=== PATIENT | male | born 1970 | race Caucasian/White ===

== ENCOUNTER 2019-09-10 18:34 | Emergency (ER) | payer MEDICAID ==
[2019-09-10 18:37] VITALS: Wt 150.0 kg
[2019-09-10 19:03] LABS: BASOPHILS 0.1 % (0-2); EOSINOPHILS 0.4 % (0-7); IMMATURE GRANULOCYTES 0.7 % (0-5); LYMPHOCYTES 4.4 % (15-50); MCH 29.9 pg (26.0-34.0); MCHC 33.3 g/dL (31.0-37.0); MCV 89.7 fL (80.0-100.0); MEAN PLATELET VOLUME 8.7 fL (7.4-10.4); MONOCYTES 7.6 % (2-11); NEUTROPHILS 86.8 % (40-80); PLATELET COUNT 200 10x3/uL (130-400); RBC 4.68 10x6/uL (4.20-6.10); RDW 13.5 % (11.5-14.5); WBC 16.9 10x3/uL (4.8-10.8)
[2019-09-10 19:10] LABS: CALC OSMOLALITY 279 mosm/kg (275-300); CALCIUM 8.9 mg/dL (8.5-10.1); CHLORIDE - SERUM 99 mmol/L (98-107); CREATININE - SERUM 1.4 mg/dL (0.6-1.3); GLUCOSE 211 mg/dL (74-106); POTASSIUM - SERUM 3.9 mmol/L (3.5-5.1); SODIUM 136 mmol/L (136-145); UREA NITROGEN 18 mg/dL (7-18); eGFR NON AFRICAN AMERICAN 57 mL/min (90-120)
[2019-09-10 19:13] LABS: APTT 24.4 SECONDS (22.8-39.4); INR 1.03 (0.85-1.17); PROTIME 13.5 SECONDS (11.6-15.0)
[2019-09-10 19:30] LABS: ALBUMIN 3.4 g/dL (3.4-5.0); ALKALINE PHOSPHATASE 63 U/L (30-120); ALT (SGPT) 24 U/L (10-68); BILIRUBIN - TOTAL 0.53 mg/dL (0.2-1.3); CKMB 1.1 U/L (0.0-3.6); CREATINE KINASE 118 UL (21-232); MAGNESIUM - SERUM 1.5 mg/dL (1.8-2.4); PROTEIN - SERUM 7.8 g/dL (6.4-8.2)
[2019-09-10 19:35] LABS: TROPONIN-I 0.341 ng/mL (0.000-0.060)
[2019-09-10 19:41] LABS: BILIRUBIN NEGATIVE (NEGATIVE); GLUCOSE NEGATIVE (NEGATIVE); KETONE NEGATIVE (NEGATIVE); NITRITE NEGATIVE (NEGATIVE); SPECIFIC GRAVITY 1.015 (1.005-1.020); UROBILINOGEN NORMAL (NORMAL)
[2019-09-10 21:23] VITALS: BP 115/76
== END 2019-09-10 21:23 | disposition left against medical advice (07) ==
LOC: D.ER 18:34
PROVIDERS: Emergency Medicine
DX: R79.89 Other specified abnormal findings of blood chemistry (principal); K52.9 Noninfective gastroenteritis and colitis, unspecified; E86.9 Volume depletion, unspecified; K92.2 Gastrointestinal hemorrhage, unspecified; E11.9 Type 2 diabetes mellitus without complications; I10 Essential (primary) hypertension; Z72.0 Tobacco use; Z53.29 Procedure and treatment not carried out because of patient's decision for other reasons

== ENCOUNTER 2020-12-05 15:02 | Inpatient (IN) | payer OTHER ==
[~2020-12-05] VITALS: Ht 190.5 cm; Wt 159.5 kg
[2020-12-05 16:01] LABS: BASOPHILS 0.8 % (0-2); EOSINOPHILS 0.3 % (0-7); HEMATOCRIT 39.1 % (42.0-54.0); HEMOGLOBIN 13.3 g/dL (13.5-17.5); LYMPHOCYTES 9.1 % (15-50); MCH 28.6 pg (26.0-34.0); MCV 84.3 fL (80.0-100.0); MONOCYTES 9.6 % (2-11); NEUTROPHILS 80.2 % (40-80); RBC 4.64 10x6/uL (4.20-6.10); RDW 13.9 % (11.5-14.5); WBC 9.6 10x3/uL (4.8-10.8)
[2020-12-05 16:05] LABS: ANION GAP 12.5 mmol/L (8-16); CALCIUM 8.8 mg/dL (8.5-10.1); CARBON DIOXIDE 27.9 mmol/L (21.0-32.0); CREATININE - SERUM 1.2 mg/dL (0.6-1.3); PLATELET COUNT 267 10x3/uL (130-400); POTASSIUM - SERUM 4.4 mmol/L (3.5-5.1)
[2020-12-05 16:18] LABS: ALBUMIN 2.9 g/dL (3.4-5.0); BILIRUBIN - TOTAL 0.69 mg/dL (0.2-1.3)
[2020-12-05 19:17] VITALS: BP 136/77
[2020-12-05 20:17] VITALS: BP 132/79
[2020-12-05 21:16] LABS: BILIRUBIN NEGATIVE (NEGATIVE); KETONE NEGATIVE mg/dL (< 1+); NITRITE NEGATIVE (NEGATIVE); PH 5.5 (5.0-8.0); SQUAMOUS EPITHELIAL 1 HPF (0-4); UROBILINOGEN 2 mg/dL (< 2); WHITE CELLS - URINE 3 HPF (0-1)
[2020-12-05 21:17] VITALS: BP 137/82
[2020-12-05 21:18] LABS: APTT 37.6 SECONDS (22.8-39.4); INR 1.23 (0.85-1.17); PROTIME 14.4 SECONDS (11.6-15.0)
[2020-12-05 21:35] LABS: CALC OSMOLALITY 276 mosm/kg (275-300); CALCIUM 8.4 mg/dL (8.5-10.1); CARBON DIOXIDE 25.7 mmol/L (21.0-32.0); CHLORIDE - SERUM 94 mmol/L (98-107); CKMB 0.4 U/L (0.0-3.6); CREATINE KINASE 48 UL (21-232); CREATININE - SERUM 1.3 mg/dL (0.6-1.3); GLUCOSE 371 mg/dL (74-106); MAGNESIUM - SERUM 1.6 mg/dL (1.8-2.4); POTASSIUM - SERUM 4.6 mmol/L (3.5-5.1); SODIUM 131 mmol/L (136-145); TROPONIN-I 0.037 ng/mL (0.000-0.060); UREA NITROGEN 11 mg/dL (7-18); eGFR NON AFRICAN AMERICAN 61 mL/min (90-120)
[2020-12-05 22:17] VITALS: BP 135/80
[2020-12-06] VITALS (8 sets, daily range): BP systolic 132–144; BP diastolic 72–89; Ht 190.5 cm; Wt 159.5 kg
--- NOTE | 2020-12-06 04:43 | NUR ---
CHANGE PT TO ROOM 6 WITH HOSPITAL BED, PT MUCH MORE COMFORTABLE AT THIS TIME
[2020-12-06 06:36] LABS: BASOPHILS 0.7 % (0-2); EOSINOPHILS 0.3 % (0-7); HEMATOCRIT 34.8 % (42.0-54.0); HEMOGLOBIN 11.7 g/dL (13.5-17.5); LYMPHOCYTES 15.5 % (15-50); MCHC 33.4 g/dL (31.0-37.0); MCV 83.9 fL (80.0-100.0); MEAN PLATELET VOLUME 7.1 fL (7.4-10.4); MONOCYTES 12.6 % (2-11); NEUTROPHILS 70.9 % (40-80); PLATELET COUNT 231 10x3/uL (130-400); RBC 4.15 10x6/uL (4.20-6.10); RDW 14.1 % (11.5-14.5); WBC 7.7 10x3/uL (4.8-10.8)
[2020-12-06 07:06] LABS: ALBUMIN 2.4 g/dL (3.4-5.0); ANION GAP 12.4 mmol/L (8-16); BILIRUBIN - TOTAL 0.81 mg/dL (0.2-1.3); CALCIUM 8.5 mg/dL (8.5-10.1); CARBON DIOXIDE 27.7 mmol/L (21.0-32.0); CREATININE - SERUM 1.2 mg/dL (0.6-1.3); MAGNESIUM - SERUM 1.7 mg/dL (1.8-2.4); POTASSIUM - SERUM 4.1 mmol/L (3.5-5.1); PROTEIN - SERUM 6.9 g/dL (6.4-8.2)
[2020-12-06 11:23] LABS: UDS - AMPHET NEGATIVE QUAL (NEGATIVE); UDS - BARB NEGATIVE QUAL (NEGATIVE); UDS - BENZO NEGATIVE QUAL (NEGATIVE); UDS - COCAINE NEGATIVE QUAL (NEGATIVE); UDS - OPIATE NEGATIVE QUAL (NEGATIVE); UDS - PCP NEGATIVE QUAL (NEGATIVE); UDS - THC NEGATIVE QUAL (NEGATIVE)
[2020-12-06] MEDS ORDERED: COREG25 MG PO (18:26)
[2020-12-06] MEDS ORDERED: ALDACTONE25 MG PO (18:28)
[2020-12-06] MEDS ORDERED: PROZAC20 MG PO (18:28)
[2020-12-06] MEDS ORDERED: LASIX80 MG PO (18:30)
[2020-12-06] MEDS ORDERED: LISINOPRIL20 MG PO (18:31)
[2020-12-06] MEDS ORDERED: GLIMEPIRIDE2 MG PO (18:31)
--- NOTE | 2020-12-06 19:50 | NUR ---
C/O ROOM BEING TO HAT. AC ON AND COOLING. HOWEVER, HE DOES'NT THINK ITS COOL ENOUGH. STATED "IF IT DOES'NT GET ANY COOLER I'M GOING HOME." ASKED HIM TO LET THIS NURSE KNOW WHAT HE WANTED TO DO. REQUESTING PASIN MEDICATION AT THIS TIME. UNSURE OF WEATHER TO GIVE IT TO HIM IF HE'S GOING HOME D/T FALL RISK. WILL SPEAK WITH HIM FIRST.
[2020-12-07 01:38] VITALS: BP 128/76
[2020-12-07 06:34] LABS: BASOPHILS 0.5 % (0-2); EOSINOPHILS 1.2 % (0-7); HEMATOCRIT 31.9 % (42.0-54.0); HEMOGLOBIN 10.6 g/dL (13.5-17.5); MCHC 33.2 g/dL (31.0-37.0); MCV 84.4 fL (80.0-100.0); MEAN PLATELET VOLUME 7.1 fL (7.4-10.4); MONOCYTES 10.8 % (2-11); NEUTROPHILS 70.5 % (40-80); PLATELET COUNT 239 10x3/uL (130-400); RBC 3.79 10x6/uL (4.20-6.10); WBC 8.2 10x3/uL (4.8-10.8)
[2020-12-07 06:37] VITALS: BP 142/81
[2020-12-07 06:58] LABS: ALBUMIN 2.2 g/dL (3.4-5.0); ANION GAP 12.4 mmol/L (8-16); BILIRUBIN - TOTAL 0.63 mg/dL (0.2-1.3); CALCIUM 8.2 mg/dL (8.5-10.1); CARBON DIOXIDE 27.6 mmol/L (21.0-32.0); CREATININE - SERUM 1.4 mg/dL (0.6-1.3); MAGNESIUM - SERUM 1.6 mg/dL (1.8-2.4); PROTEIN - SERUM 6.8 g/dL (6.4-8.2)
[2020-12-07 12:30] VITALS: BP 149/82
--- NOTE | 2020-12-07 19:45 | NUR ---
RECEIVED BEDSIDE REPORT. PT LAYING IN BED A&O X4. PIV TO LEFT HAND PATENT AND INFUSING, NO REDNESS OR SWELLING. DISCOLORATION, DRY CRACKING, SCAB/SORES NOTED TO BILAT LOWER EXTREM, +2 EDEMA. PT ABLE TO AMBULATE AD [place]. EDUCATED ON CL AND NEEDS, VERBALIZED UNDERSTANDING. BED LOW, CL IN REACH.
[2020-12-07 20:20] VITALS: BP 150/91
[2020-12-08 00:30] VITALS: BP 158/87
[2020-12-08 05:40] LABS: BASOPHILS 0.4 % (0-2); EOSINOPHILS 2.6 % (0-7); HEMATOCRIT 31.3 % (42.0-54.0); HEMOGLOBIN 10.4 g/dL (13.5-17.5); LYMPHOCYTES 20.7 % (15-50); MCHC 33.4 g/dL (31.0-37.0); MCV 83.9 fL (80.0-100.0); MONOCYTES 10.1 % (2-11); NEUTROPHILS 66.2 % (40-80); PLATELET COUNT 231 10x3/uL (130-400); RBC 3.73 10x6/uL (4.20-6.10); WBC 7.5 10x3/uL (4.8-10.8)
[2020-12-08 05:55] LABS: ALBUMIN 2.3 g/dL (3.4-5.0); ANION GAP 10.3 mmol/L (8-16); BILIRUBIN - TOTAL 0.54 mg/dL (0.2-1.3); CALCIUM 8.4 mg/dL (8.5-10.1); CARBON DIOXIDE 29.7 mmol/L (21.0-32.0); CREATININE - SERUM 1.4 mg/dL (0.6-1.3); MAGNESIUM - SERUM 1.8 mg/dL (1.8-2.4)
[2020-12-08 06:05] VITALS: BP 141/85
[2020-12-08 08:00] VITALS: BP 143/91
[2020-12-08 12:00] VITALS: BP 141/89
[2020-12-08 16:00] VITALS: BP 126/81
--- NOTE | 2020-12-08 20:00 | NUR ---
INITIAL ROUNDS AND ASSESSMENT COMPLETED. PT ALERT/ORIENTED AND UPSET THAT NO ONE HAS BEEN ABLE TO GET AN IV STARTED AT THIS TIME. BLE ARE DRY/CRACKING/EDEMATOUS AND DISCOLORED. CALMED PT DOWN AND TOLD HIM THAT ATTEMPT TO RESITE IV WOULD BE DONE SHORTLY.
[2020-12-08 20:41] VITALS: BP 145/86
--- NOTE | 2020-12-08 23:00 | NUR ---
MULTIPLE ATTEMPTS TO SITE NEW IV FOR ABT AND IV PAIN MEDS FOR C/O PAIN IN LEGS AND RIGHT ARM. FINALLY ABLE TO SITE 20G TO LEFT A/C AND STARTED DUE IV ABT. ALSO MEDICATED WITH DILAUDID 1MG SIVP. PT NOW IN A MUCH BETTER MOOD SINCE NEW IV IS WORKING.
--- NOTE | 2020-12-09 02:51 | NUR ---
REVIEWED PAIN MEDICATION FREQUENCY WITH PATIENT.
[2020-12-09 06:14] VITALS: BP 129/70
[2020-12-09 07:08] LABS: BASOPHILS 0.6 % (0-2); EOSINOPHILS 3.7 % (0-7); HEMATOCRIT 30.1 % (42.0-54.0); HEMOGLOBIN 10.1 g/dL (13.5-17.5); LYMPHOCYTES 19.4 % (15-50); MCHC 33.5 g/dL (31.0-37.0); MCV 83.6 fL (80.0-100.0); MEAN PLATELET VOLUME 7.6 fL (7.4-10.4); NEUTROPHILS 66.3 % (40-80); PLATELET COUNT 247 10x3/uL (130-400); RDW 14.3 % (11.5-14.5); WBC 6.9 10x3/uL (4.8-10.8)
[2020-12-09 07:28] LABS: ALBUMIN 2.2 g/dL (3.4-5.0); ANION GAP 12.4 mmol/L (8-16); BILIRUBIN - TOTAL 0.6 mg/dL (0.2-1.3); CALCIUM 8.3 mg/dL (8.5-10.1); CARBON DIOXIDE 26.5 mmol/L (21.0-32.0); CREATININE - SERUM 1.2 mg/dL (0.6-1.3); MAGNESIUM - SERUM 1.9 mg/dL (1.8-2.4); POTASSIUM - SERUM 3.9 mmol/L (3.5-5.1); PROTEIN - SERUM 6.8 g/dL (6.4-8.2)
[2020-12-09 07:45] VITALS: BP 162/98
--- NOTE | 2020-12-09 10:52 | NUR ---
PT DECIDED TO LEAVE AMA SINCE HE IS NOT BEING D/C. REFUSED TO SIGN AMA PAPER. NOTIFIED JOSE ELIAS MARIN. D/C LT AC IV WITH CATHETER TIP INTACT, PT LEFT UNIT VIA AMBULATORY WITH ALL BELONGINGS.
--- NOTE | 2020-12-10 18:37 | MORECARE ---
CASE MANAGEMENT DISCHARGE SUMMARY PATIENT: FERNANDO SARABIA UNIT: [id number] ADM DATE: 12/07/20 AGE: 50 : 66 SEX: M ROOM/BED: [facility] AUTHOR: ELAINE,DOC PHYSICIAN: REFERRING PHYSICIAN: GAVINO DIAMOND DO DATE OF SERVICE: 12/10/20 Case Management Discharge Planning Summary DCP REVIEW SUMMARY ANTICIPATED D/C DATE: EXPECTED LOS : CASE STATUS: DCP Initiated INITIAL REVIEW: 12/05/2020 INITIAL REVIEWER: Melani Khan FINAL DISCHARGE DISPOSITION: : FINAL REVIEWER: FINAL REVIEW DATE: DCP [employer] QUESTION: ANSWER : PATIENT: FERNANDO SARABIA ENCOUNTER: [id number] MEDICAL RECORD#: [id number] ADMISSION DATE: 12/07/2020 DISCHARGE DATE: 12/09/2020 ATTENDING MD: GAVINO CHATTERJEE : AGE: 50 MARITAL STATUS: S DC PLAN ID: [id number] FACILITY: [facility] PRINTED ON: 12/10/20 18:36 CT All edits/amendments must be made on the electronic document DICTATION DATE: 12/10/[address] PATROL: DM 12/10/201835 RPT#: [id number] DC DATE:12/09/20 STATUS: DIS IN [facility] [address] [facility] [place] [address] END OF REPORT
== END 2020-12-09 10:55 | disposition left against medical advice (07) | DRG 603 ==
LOC: D.ER 15:02 → D.EDHOLD 17:24 → OBSVTIME 17:24 → D.M2 12-06 14:30
PROVIDERS: Family Medicine; ADMIT Family Medicine; ATTEND Family Medicine
DX: L03.116 Cellulitis of left lower limb (principal); I16.9 Hypertensive crisis, unspecified; E87.1 Hypo-osmolality and hyponatremia; E11.65 Type 2 diabetes mellitus with hyperglycemia; D64.9 Anemia, unspecified